=== PATIENT | female | born 1980 | race Caucasian/White ===

== ENCOUNTER 2024-04-17 16:26 | Emergency (ER) | payer OTHER, SELFPAY ==
[2024-04-17 16:35] VITALS: BP 140/86; PULSE 77; RESP 16; TEMP 36.5; O2SAT 99
--- NOTE | 2024-04-17 17:51 | ED.GENADULT ---
HPI - General Adult General Chief complaint: Eye Problems Stated complaint: left eye Source: patient Mode of arrival: ambulatory Limitations: no limitations History of Present Illness HPI narrative: Patient presents for evaluation of left eye irritation. She indicates she was leaning into her closet earlier today and felt a dylan jacket rub against her left eyeball. Since that time she has felt like something has been stuck in her left eye. She also reports pain, tearing, photophobia. She denies any visual disturbance. She does not were glasses or contacts. Related Data Allergies Allergy/AdvReac Type Severity Reaction Status Date / Time sertraline [From Zoloft] Allergy Headache Verified 04/17/24 16:41 Review of Systems Review of Systems: CONSTITUTIONAL: Denies fever, chills, or sweats. EYES: Reports redness to the left eye with associated tearing, photophobia, sensation of foreign body in the left eye and pain ENT: Denies rhinorrhea, congestion, sore throat, or otalgia. CARDIOVASCULAR: Denies chest pain, palpitations, or edema. RESPIRATORY: Denies cough or dyspnea. GASTROINTESTINAL: Denies abdominal pain, nausea, vomiting, or diarrhea. GENITOURINARY: Denies dysuria or hematuria. SKIN: Denies rash or itching. MUSCULOSKELETAL: Denies back pain, joint pain, or myalgia. NEUROLOGIC: Denies headache, numbness, dizziness, or weakness. PSYCHIATRIC: Denies anxiety or depression. [facility] Past Medical History Medical History No pertinent past medical history Surgical History Surgical History History of tubal ligation Family History Family History Mother Family history non-contributory Social History Social History Smoking packs per day: 0.5 Smoking cigarettes per day: 10.0 Smoking status: Current every day smoker Tobacco type: cigarettes Alcohol intake: current Alcohol use details: social Additional living arrangements comments: partner Gender identity (if verbalized by the patient): Female Spiritual care concerns: No Exam Narrative: GENERAL: Well-appearing, well-nourished, and in no acute distress. HEAD: Normocephalic, atraumatic. EYES: PERRLA and EOMI. There are areas of dye uptake with fluorescein and Wood's lamp evaluation at 12, 4 and 6-9 o'clock positions ENT: Nares clear, no rhinorrhea or epistaxis. Mucous membranes moist. Oropharynx without tonsillar hypertrophy exudate or other lesions. Bilateral TMs pearly aponte nonbulging NECK: Supple. No adenopathy or masses. No carotid bruits or JVD CHEST: Clear to auscultation. No respiratory distress. No wheezes rales or rhonchi HEART: Regular rate and rhythm. No murmur heard. Normal peripheral pulses. ABDOMEN: Soft, nontender, nondistended, normal active bowel sounds. EXTREMITIES: Normal range of motion. No edema. SKIN: Warm, dry, no rash. NEURO: No focal deficits. Alert and oriented x3. PSYCH: Normal mood and affect. Course Course Emergency Course: This is a 43-year-old female who presented for evaluation of pain and irritation left eye. She has evidence of several corneal abrasions. No visualize retained foreign body.. Will discharge with erythromycin. Increase hydration. Follow up with primary provider. Go to the ER for worsening symptoms. Patient in agreement with plan of care. Level of Care: Express Care Visit Vital Signs Vital signs: Vital Signs Temperature 36.5 C 04/17/24 16:35 Pulse Rate 77 04/17/24 16:35 Respiratory Rate 16 04/17/24 16:35 Blood Pressure 140/86 04/17/24 16:35 Pulse Oximetry 99 04/17/24 16:35 Oxygen Delivery Room Air 04/17/24 16:35 Temperature 36.5 C 04/17/24 16:35 Pulse Rate 77 04/17/24 16:35 Respiratory Rate 16 04/17/24 16
== END 2024-04-17 17:59 | disposition home or self-care (01) ==
PROVIDERS: Emergency Provider Nurse Practitioner
DX: S05.02XA Injury of conjunctiva and corneal abrasion without foreign body, left eye, initial encounter (principal); W22.8XXA Striking against or struck by other objects, initial encounter; F17.210 Nicotine dependence, cigarettes, uncomplicated
CPT/HCPCS: 99213; A9270; G0463

== ENCOUNTER 2024-09-02 11:41 | Emergency (ER) | payer OTHER, SELFPAY ==
[2024-09-02 11:52] VITALS: BP 142/85; PULSE 68; RESP 16; TEMP 36.6; O2SAT 100
--- NOTE | 2024-09-02 12:57 | ED.EYEPROB ---
HPI - Eye Problem General Chief complaint: Eye Problems Stated complaint: Right eye scratch Time Seen by Provider: 09/02/24 12:50 Source: patient, RN notes reviewed and old records reviewed Mode of arrival: ambulatory Limitations: no limitations History of Present Illness HPI Narrative: 44 year old female presents to [facility] care with complaints of accidently poking self in her right eye yesterday around 1500 with her finger. Patient has some redness and swelling of her right eye with pain, excessive watering, photophobia since incident. Patient has been using cool compress to her right eye and has been lying in darkened room. chief complaint: eye pain, eye redness and other (photophobia, and excessive watering accidently poked self in eye) Onset (ago): day(s) (occurred yesterday) Onset description: sudden Duration: constant Location: right eye Eye Symptoms: burning, redness, pain, photophobia and other (excessive watering) Place: home Severity scale (1-10): 5 If Pain, Quality: burning and throbbing Treatments Prior to Arrival: other (cold compress to right eye, dark room) Related Data Home Medications Medication Instructions Recorded Confirmed albuterol sulfate 90 mcg/actuation inhalation 09/02/24 aerosol inhaler budesonide-formoterol HFA 160 inhalation 09/02/24 09/02/24 mcg-4.5 mcg/actuation aerosol inhaler (Symbicort) montelukast 10 mg tablet mg 09/02/24 Allergies Allergy/AdvReac Type Severity Reaction Status Date / Time sertraline [From Zoloft] Allergy Headache Verified 04/17/24 16:41 Review of Systems Review of Systems: CONSTITUTIONAL: Denies fever, chills, or sweats. EYES: some visual blurring Reports redness,, irritation, excessive watering and photophobia to right eye with burning pain to right eye and swelling. ENT: Denies rhinorrhea, congestion, sore throat, or otalgia. CARDIOVASCULAR: Denies chest pain, palpitations, or edema. RESPIRATORY: Denies cough or dyspnea. SKIN: Denies rash or itching. NEUROLOGIC: Denies headache All systems reviewed & are unremarkable except as noted in HPI and below PMFSH Past Medical History Medical History Anxiety and depression Asthma Surgical History Surgical History History of tubal ligation Family History Family History Mother Family history non-contributory Social History Social History Smoking packs per day: 1 Smoking cigarettes per day: 20.0 Years smoked: 15 Smoking pack-years: 15.00 Smoking status: Current every day smoker Tobacco type: e-cigarettes/vaping Additional smoking assessment comments: former 1 ppd for 15 years cigarettes quit cigarettes 6 months ago now vapes Alcohol intake: current Alcohol use details: social Additional living arrangements comments: partner Gender identity (if verbalized by the patient): Female Spiritual care concerns: No Comments At time of signature, agree with nursing past medical, surgical, social and family history. There is no relevant family history pertinent to the presenting complaint Exam Narrative: GENERAL: Well-appearing, well-nourished, and in no acute distress. HEAD: Normocephalic, atraumatic. EYES: PERRLA and EOMI. Right upper and lower eyelids swollen. No periorbital cellulitis noted. Sclera and conjunctivae injected, excessive watering photophobia with pain to eye with some blurring of vision reported ENT: Nares clear, no rhinorrhea or epistaxis. Mucous membranes moist. NECK: Supple.no lymphadenopathy CHEST: Clear to auscultation. No respiratory distress.[id number]% on room air HEART: Regular rate and rhythm. No murmur heard. Normal peripheral pulses. SKIN: Warm, dry, no rash. NEURO: No focal deficits. Alert and oriented x3. Course Course Emergency Course: Patient is aware of diagnosis, understands and agrees to treatment plan. Anticipatory guidance given. Patient agrees to follow-up as directed and is aware of reasons to seek care at the emergency department. Portions of this record may have been created with voice recognition software Level of Care: Express Care Visit Vital Signs Vital signs: Vital Signs Temperature 36.6 C 09/02/24 11:52 Pulse Rate 68 09/02/24 11:52 Respiratory Rate 16 09/02/24 11:52 Blood Pressure 142/85 H 09/02/24 11:52 Pulse Oximetry 100 09/02/24 11:52 Oxygen Delivery Room Air 09/02/24 11:52 Temperature 36.6 C 09/02/24 11:52 Pulse Rate 68 09/02/24 11:52 Respiratory Rate 16 09/02/24 11:52 Blood Pressure 142/85 H 09/02/24 11:52 Pulse Oximetry 100 09/02/24 11:52 Oxygen Delivery Room Air 09/02/24 11:52 Reviewed Procedures FB Removal Eye Foreign Body #1: Foreign Body Removal Date: 09/02/24 Foreign Body Removal Time: 13:00 Time Out performed: Yes Location: eye (R) Topical anesthetic used: tetracaine (0.5% 2 drops) Foreign body: other (none noted) Evidence of corneal penetration: No Technique: eye wash bottle, cotton tip swab and other (magnification) Procedure performed under: direct visualization with magnification and other (bauman lamp) Post-procedure medication: topical anesthetic (Tetracaine 2 drops for comfort measure) Patient tolerated procedure: well Complications: other (none) Foreign Body Removal Narrative: Right eye localized with Tetracaine 0.5% 2 drops. Eye examined for any foreign body using cotton tip applicator, magnification and irrigation with none noted. Right eye stained using Fluorescein stain and examined with bauman lamp with abrasion noted at 6 0'clock position below pupil area. Eye then rinsed well with eye wash solution and tetracaine 0.5% 2 drops applied for comfort measure. Patient tolerated well MDM - Eye Problem MDM Narrative Medical decision making narrative: Consideration of the following conditions may be warranted for the presenting problem, they are not final diagnoses: Bacterial conjunctivitis, allergic conjunctivitis, viral conjunctivitis, foreign body, blepharitis, chalazion, hordeolum, corneal abrasion.? Exam findings show no acute concerns or changes; patient is non-toxic appearing and is in no distress.? Patient is appropriate for outpatient treatment and follow-up. Differential Diagnosis Differential diagnosis: Likely corneal abrasion, subconjunctival hemorrhage and other (poked self in right eye, right eye pain, photophobia, excessive watering) Medical Records Attestation: I reviewed the patient's medical records. Critical Care Time Critical Care Time Critical Care Time: No Discharge Plan Discharge Clinical Impression: Corneal abrasion, right Qualifiers: Encounter type: initial encounter Qualified Code(s): S05.01XA - Injury of conjunctiva and corneal abrasion without foreign body, right eye, initial encounter Patient Disposition: Home, Self-Care Condition: Stable Instructions: Corneal Abrasion (ED) Additional Instructions: Cold compresses to the eyes for comfort May need warm compresses to remove debris in the morning When cleaning the eyes used a washcloth in one direction then change washcloths or use a cotton ball in one direction and then his cotton balls Eyedrops as directed--may be more soothing if left in the refrigerator Do not share medicine--do not touch the eye with the medicine Tylenol or ibuprofen for pain Avoid screen time--television, computer, tablet or phone. Also no reading or driving Follow-up with PCP or stemmer machine as directed If your symptoms persist, change or worsen significantly before you can contact your personal physician then please, without delay, go to the emergency department for further evaluation. Follow-up with PCP in 7-10 days or sooner if needed Follow up with PCP soon in regards to your blood pressure which is elevated above threshold for referral. Blood pressure above 120/80 may indicate pre-hypertension. 142/85 Prescriptions: New ofloxacin 0.3 % drops See Rx Instructions .ROUTE .COMPLEX Qty: 10 0RF Rx Instructions: put 1-2 drps into affected eye(s) every 2-4 h x 2 days, then 1-2 drps 4 times/day days 3-7 No Action montelukast 10 mg tablet albuterol sulfate 90 mcg/actuation HFA aerosol inhaler INHALATION budesonide-formoterol [Symbicort] 160-4.5 mcg/actuation HFA aerosol inhaler INHALATION Follow-up/Referrals: Ashley,MD Sylvester [Primary Care Provider] - Time of Disposition: 13:14 Quality [place] Coma Scale Eyes: Open Verbal: Oriented and Alert Motor: Follows Commands Jan Coma Total Score: 15
[2024-09-02] MEDS: DACRIOSE EYE IRRIGATION 118 ML BOTTLE RIGHT EYE (13:00)
[2024-09-02] MEDS: TETRACAINE HCL 0.5% OPHTH SOLN 4 ML BTL RIGHT EYE (13:00)
[2024-09-02] MEDS: FLUORESCEIN SOD 1 MG/STRIP RIGHT EYE (13:00)
== END 2024-09-02 13:15 | disposition home or self-care (01) ==
PROVIDERS: Emergency Provider Registered Nurse; PCP Family Medicine
DX: S05.01XA Injury of conjunctiva and corneal abrasion without foreign body, right eye, initial encounter (principal); X58.XXXA Exposure to other specified factors, initial encounter; J45.909 Unspecified asthma, uncomplicated; F17.290 Nicotine dependence, other tobacco product, uncomplicated
CPT/HCPCS: 99213; A9270; G0463